=== PATIENT | male | born 1970 | race Caucasian/White ===

== ENCOUNTER 2017-08-31 14:18 | Emergency (ER) | payer OTHER ==
[~2017-08-31] VITALS: Ht 172.7 cm; Wt 73.0 kg
[~2017-08-31 14:18] MED LIST: CHLO25CA PO
--- NOTE | 2017-08-31 14:29 | PD ---
HPI Chief Complaint: seizure Time Seen by Provider: 14:18 Travel History International Travel<30 days: No Contact w/Intl Traveler<30days: No Traveled to known affect area: No History of Present Illness HPI This is a 47-year-old male presents via EMS for evaluation of seizure. The patient was incarcerated overnight, released today. He was on the city bus when he had a witnessed tonic-clonic seizure. This lasted 3 minutes per bystanders. He reports that he had a seizure 30 days ago as well. He was also seen here on December 29, 2015 for what was believed to be a alcohol withdrawal seizure at that time. He reports that he thinks that those are the only 3 times in his life that he has had a seizure. He used to be a heavy drinker, when he was seen here in December 2015 he would drink 4 bottles of wine a day. He reports that he currently drinks much less, only drinks 3-4 glasses of wine about 3-4 times a week. His last drink was 2 days ago. Presumably the seizure is aggravated by decreased alcohol use, no obvious alleviating factors. PFSH Past Medical History Psychiatric: Yes (ALCOHOL ABUSE) Social History Alcohol Use: Yes (DAILY 4 BOTTLES OF WINE) Tobacco Use: No (QUIT 4 YEARS AGO) Substance Use: No Allergies-Medications (Allergen,Severity, Reaction): Coded Allergies: No Known Allergies (Unverified , 12/29/15) Reported Meds & Prescriptions Reported Meds & Active Scripts Active Chlordiazepoxide HCl 25 Mg Capsule 1 Cap PO TID Review of Systems Except as stated in HPI: all other systems reviewed are Neg Physical Exam Narrative GENERAL: Well-developed well-nourished male who is somewhat tremulous on initial examination. SKIN: Warm and dry. HEAD: Atraumatic. Normocephalic. EYES: Pupils equal and round reactive to light extraocular muscles are intact mild left subconjunctival hemorrhaging is noted. No hyphema. ENT: No nasal bleeding or discharge. Mucous membranes pink and moist. NECK: Trachea midline. No JVD. CARDIOVASCULAR: Regular rate and rhythm. No murmur appreciated. RESPIRATORY: No accessory muscle use. Clear to auscultation. Breath sounds equal bilaterally. GASTROINTESTINAL: Abdomen soft, non-tender, nondistended. Hepatic and splenic margins not palpable. MUSCULOSKELETAL: No obvious deformities. No clubbing. No cyanosis. No edema. NEUROLOGICAL: Awake and alert. No obvious cranial nerve deficits. Motor grossly within normal limits. Normal speech. Tremulous. PSYCHIATRIC: Appropriate mood and affect; insight and judgment normal. Data Data Last Documented VS Vital Signs Date Time Temp Pulse Resp B/P (MAP) Pulse Ox O2 Delivery O2 Flow Rate FiO2 08/31/17 15:30 84 18 99 Room Air 08/31/17 14:54 2.00 08/31/17 14:53 98.0 Orders Orders Complete Blood Count With Diff (08/31/17 14:29) Basic Metabolic Panel (Bmp) (08/31/17 14:29) Alcohol (Ethanol) (08/31/17 14:29) Drug Screen, Random Urine (08/31/17 14:29) Electrocardiogram (08/31/17 ) Ct Brain W/O Iv Contrast(Rout) (08/31/17 ) Blood Glucose (08/31/17 14:29) Ecg Monitoring (08/31/17 14:29) Iv Access Insert/Monitor (08/31/17 14:29) Oximetry (08/31/17 14:29) Lorazepam Inj (Ativan Inj) (08/31/17 14:30) Thiamine Inj (Thiamine Inj) (08/31/17 14:30) Sodium Chlor 0.9% 1000 Ml Inj (Ns 1000 M (08/31/17 14:30) Lorazepam Inj (Ativan Inj) (08/31/17 16:00) Sodium Chlor 0.9% 1000 Ml Inj (Ns 1000 M (08/31/17 16:11) Chlordiazepoxide (Librium) (08/31/17 16:25) Labs Laboratory Tests Test 08/31/17 14:50 White Blood Count 5.2 TH/MM3 Red Blood Count 4.64 MIL/MM3 Hemoglobin 15.4 GM/DL Hematocrit 46.2 % Mean Corpuscular Volume 99.8 FL Mean Corpuscular Hemoglobin 33.2 PG Mean Corpuscular Hemoglobin Concent 33.3 % Red Cell Distribution Width 14.5 % Platelet Count 84 TH/MM3 Mean Platelet Volume 6.5 FL Neutrophils (%) (Auto) 72.3 % Lymphocytes (%) (Auto) 18.2 % Monocytes (%) (Auto) 6.7 % Eosinophils (%) (Auto) 0.5 % Basophils (%) (Auto) 2.3 % Neutrophils # (Auto) 3.8 TH/MM3 Lymphocytes # (Auto) 1.0 TH/MM3 Monocytes # (Auto) 0.4 TH/MM3 Eosinophils # (Auto) 0.0 TH/MM3 Basophils # (Auto) 0.1 TH/MM3 CBC Comment AUTO DIFF Differential Comment AUTO DIFF CONFIRMED Platelet Estimate LOW Platelet Morphology Comment NORMAL Blood Urea Nitrogen 10 MG/DL Creatinine 0.98 MG/DL Random Glucose 103 MG/DL Calcium Level 8.5 MG/DL Sodium Level 137 MEQ/L Potassium Level 4.1 MEQ/L Chloride Level 96 MEQ/L Carbon Dioxide Level 13.2 MEQ/L Anion Gap 28 MEQ/L Estimat Glomerular Filtration Rate 82 ML/MIN Urine Opiates Screen NEG Urine Barbiturates Screen NEG Urine Amphetamines Screen NEG Urine Benzodiazepines Screen NEG Urine Cocaine Screen NEG Urine Cannabinoids Screen NEG Ethyl Alcohol Level 23 MG/DL MDM Medical Decision Making Medical Screen Exam Complete: Yes Emergency Medical Condition: Yes Medical Record Reviewed: Yes Differential Diagnosis Alcohol withdrawal seizure, hypoglycemia, electrolyte abnormality, epilepsy, intracranial mass Narrative Course The patient was placed on ECG monitoring pulse oximetry. Basic lab work, CT brain has been ordered. The patient is noted to be tremulous, Ativan has been ordered as well as thiamine, IV fluids. 1558: Alcohol level is noted to be mildly elevated despite the patient's reported history of not drinking in 2 days and being released from senior care yesterday. Upon additional questioning the patient admits that he was not forthright on initial questioning. He admits that he is still drinking about 3- 4 bottles of wine a day but cut it down to about 1 bottle of wine today over the past week because it "isn't healthy" and this history is certainly suggestive of alcohol withdrawal seizure however he has not been formally evaluated in the past for these seizures. CT brain is negative. At this point in time the recommendation was that the patient be admitted for observation however the patient is refusing and will like to sign out ama. He is alert and oriented and is able to comprehend the consequences of his decision. He reports that he has to go home to take care of his dogs. He reports that his is coming to pick him up. He'll be given additional dose of IV Ativan as well as Librium prior to discharge and he will be given a prescription for a few days of Librium. He understands that he can return at any time if he changes his mind. He understands no driving for 6 months because of his seizure today. AMA: The risks of leaving against medical advice without further evaluation treatment were discussed with the patient. These risks include cardiac dysfunction, cardiac dysrhythmia, injury, , seizure. The patient indicated understanding of these risks and appeared to have the capacity to make this decision. Procedures EKG Prior to Arrival: Yes Diagnosis Primary Impression: Seizure Additional Impressions: Alcoholism Left against medical advice Referrals: [facility] Additional Instructions: No driving for 6 months. Consider attending a formal detoxification center such as [facility] for safe alcohol cessation. Librium for withdrawal symptoms. Return at any time for further evaluation. Med/Other Pt SpecificInfo: Prescription(s) given Scripts Chlordiazepoxide HCl (Chlordiazepoxide HCl) 25 Mg Capsule 1 CAP PO TID, #10 Prov: Palmer Virk MD 08/31/17 Disposition: 07 AGAINST MEDICAL ADVICE Condition: Stable Bennie [place] Aug 31, 2017 14:28
[2017-08-31] MEDS ORDERED: THIAMINE INJ 100 MG in SODIUM CHLORIDE 0.9% INJ 100 ML IV ONE (14:30)
[2017-08-31] MEDS ORDERED: SODIUM CHLOR 0.9% 1000 ML INJ 1,000 ML IV SCH ×2 (14:30→16:11)
[2017-08-31] MEDS ORDERED: LORazepam 2 MG/ML VIAL IVS ONE (14:30)
[2017-08-31 14:46] VITALS: BP 144/89; PULSE 128; RESP 20; O2SAT 94
[2017-08-31 14:53] VITALS: BP 146/86; PULSE 114; RESP 18; TEMP 98; O2SAT 94
[2017-08-31 14:54] VITALS: RESP 18; O2SAT 95
[2017-08-31 15:19] LABS: AUTOMATED NEUTROPHIL # 3.8 TH/MM3 (1.8-7.7); BASOPHIL # 0.1 TH/MM3 (0-0.2); BASOPHIL % 2.3 % (0.0-2.0); EOSINOPHIL % 0.5 % (0.0-4.0); HEMATOCRIT 46.2 % (39.0-51.0); LYMPH % 18.2 % (9.0-44.0); MEAN CELL VOLUME 99.8 FL (80.0-100.0); MEAN CORPUSCULAR HEMOGLOBIN 33.2 PG (27.0-34.0); MEAN CORPUSCULAR HGB CONC 33.3 % (32.0-36.0); MONO % 6.7 % (0.0-8.0); NEUT % 72.3 % (16.0-70.0); PLATELET COUNT 84 TH/MM3 (150-450); RED BLOOD COUNT 4.64 MIL/MM3 (4.50-5.90); RED CELL DISTRIBUTION WIDTH 14.5 % (11.6-17.2); WHITE BLOOD COUNT 5.2 TH/MM3 (4.0-11.0)
[2017-08-31 15:28] LABS: HEMO FLAGS AUTO DIFF
[2017-08-31 15:52] LABS: BICARBONATE 13.2 MEQ/L (21.0-32.0); POTASSIUM 4.1 MEQ/L (3.5-5.1)
[2017-08-31] MEDS ORDERED: LORazepam 2 MG/ML VIAL IV PUSH ONE (16:00)
--- NOTE | 2017-08-31 16:18 | RADRPT ---
EXAM DATE/TIME: 08/31/2017 16:02 [facility] COMPARISON: No previous studies available for comparison. INDICATIONS : Cephalgia. RADIATION DOSE: 38.33 CTDIvol (mGy) MEDICAL HISTORY : None SURGICAL HISTORY : None. ENCOUNTER: Initial ACUITY: 1 day PAIN SCALE: 5/10 LOCATION: cranial TECHNIQUE: Multiple contiguous axial images were obtained of the head. Using automated exposure control and adj ustment of the mA and/or kV according to patient size, radiation dose was kept as low as reasonably a chievable to obtain optimal diagnostic quality images. DICOM format image data is available electro nically for review and comparison. FINDINGS: CEREBRUM: The ventricles are normal for age. No evidence of midline shift, mass lesion, hemorrhage or acute in farction. No extra-axial fluid collections are seen. POSTERIOR FOSSA: The cerebellum and brainstem are intact. The 4th ventricle is midline. The cerebellopontine angle i s unremarkable. EXTRACRANIAL: The visualized portion of the orbits is intact. SKULL: The calvaria is intact. No evidence of skull fracture. CONCLUSION: No acute intracranial disease. Mejia De La Rosa MD on August 31, 2017 at 16:16 Board Certified Radiologist. This report was verified electronically.
[2017-08-31] MEDS ORDERED: chlordiazePOXIDE 25 MG CAP PO STA (16:25)
[2017-08-31] MEDS ORDERED: CHLO25CA9 PO (16:27)
[2017-08-31 16:35] LABS: PLATELET ESTIMATE SMEAR LOW (NORMAL); PLATELET MORPHOLOGY NORMAL (NORMAL); SCAN/DIFF AUTO DIFF CONFIRMED
--- NOTE | 2017-09-01 09:54 | EKG ---
Date Performed: 08/31/2017 Time Performed: 15:34:59 PTAGE: 47 years EKG: SINUS TACHYCARDIA ABNORMAL RHYTHM ECG NO PREVIOUS TRACING DOCTOR: Kade Chance Interpretating Date/Time 09/01/2017 09:52:32
== END 2017-08-31 17:15 | disposition left against medical advice (07) ==
LOC: NEPE 14:18
DX: R56.9 Unspecified convulsions (principal); F10.20 Alcohol dependence, uncomplicated; Y90.1 Blood alcohol level of 20-39 mg/100 ml
CPT/HCPCS: 70450; 80048; 80307; 85025; 93005; 96374; 96375; 99285; J2060; J3411; J7030